=== PATIENT | male | born 1945 | race Caucasian/White ===

== ENCOUNTER 2022-06-09 13:54 | Inpatient (IN) ==
[2022-06-09] MEDS ORDERED: SODIUM CHLORIDE 0.9% 500 ML IV SCH (14:45)
--- NOTE | 2022-06-09 15:03 | XRay Report ---
XR chest 1V portable HISTORY: weakness COMPARISON: Chest 12/03/2020. FINDINGS: The lungs are clear. Cardiac silhouette is normal in size. No pleural effusions. No pneumot horax. IMPRESSION: No acute process. ACT 112: Negative or not required by law. Electronically signed by: Rubens Bond M.D. 06/09/2022 3:02 PM
[2022-06-09 15:05] LABS: Basophils # (auto) 0.02 K/uL (0-0.2); Basophils % (auto) 0.2 %; Eosinophils # (auto) 0.14 K/uL (0-0.50); Eosinophils % (auto) 1.3 %; Hematocrit (blood only) 38.3 % (40.1-51.0); Hemoglobin 13.4 g/dl (14.0-18.0); Immature Granulocytes # (auto) 0.16 K/uL (0.00-0.02); Immature Granulocytes % (auto) 1.4 %; Lymphocytes # (auto) 0.76 K/uL (1.2-3.4); Lymphocytes % (auto) 6.9 %; Mean Corpuscular Hemoglobin 30.4 pg (25.0-34.0); Mean Corpuscular Volume 86.8 fL (80.0-100.0); Monocytes # (auto) 0.69 K/uL (0.24-0.82); Monocytes % (auto) 6.2 %; Neutrophils # (auto) 9.32 K/uL (1.4-6.5); Platelet Count 310 K/uL (130-400); RDW Coefficient of Variation 13.2 % (11.5-14.5); RDW Standard Deviation 41.7 fL (36.4-46.3); Red Blood Count 4.41 M/uL (4.63-6.08); White Blood Count 11.09 K/ul (4.8-10.8)
[2022-06-09 15:18] LABS: Appearance Urine Clear (Clear); Bacteria Urine Automated Negative (Negative); Bilirubin Urine Negative (Negative); Blood Urine 1+ (Negative); Color Urine Yellow; Glucose Urine UA Negative (Negative); Ketones Urine Negative (Negative); Leukocyte Esterase Urine Negative (Negative); Nitrite Urine Negative (Negative); Protein Urine 1+ (Negative); Specific Gravity Urine 1.017 (1.000-1.030); Urobilinogen Urine Negative (Negative)
--- NOTE | 2022-06-09 15:20 | Emergency Department Note ---
Impression & Plan MADELIN (acute kidney injury) ED Provider Note NAME: RONALD HOOVER AGE: 77 SEX: M : 1945 ARRIVES VIA: Walk-In INFORMANT: Patient, ED PROVIDER(S): Jovanny Marquez DO CHIEF COMPLAINT: Weakness HPI: The patient is a 77-year-old male who presented to the emergency department for an evaluation of generalized weakness. The patient was given his COVID as well as his influenza shot this week. He states afterwards he became very weak and started noticing fevers. He started having fever over 100. He noticed no chest pain. He denies having any cough. He has no dysuria or frequency. The patient was seen by his family doctor and had outpatient laboratory studies drawn. This was done yesterday. He was called today and told to go to the emergency department for further evaluation as well as evaluation for renal failure. The patient denies having any recent trauma. He said no changes to his outpatient medications. He states has been compliant with his outpatient medications. He has noticed decreased urine output. ROS: See above HPI for pertinent positives & negatives. A total of 10 systems reviewed and were otherwise negative. PAST MEDICAL HISTORY: See Below PAST SURGICAL HISTORY: See Below FAMILY HISTORY: See Below SOCIAL HISTORY: See Below HOME MEDICATIONS: See Below ALLERGIES: See Below VITALS: See Below PHYSICAL EXAMINATION: GENERAL: Patient is awake alert in no acute distress patient is resting comfortably and showing no signs of anxiety EYES: The conjunctivae are clear. The pupils are round and reactive. EARS, NOSE, MOUTH AND THROAT: The nose is without any evidence of any deformity. Mucous membranes are dry. NECK: The neck is nontender and supple. RESPIRATORY: Normal respiratory effort is noted there is no evidence of wheezing rhonchi or rales CARDIOVASCULAR: Regular rate and rhythm noted there no murmurs rubs or gallops normal S1 normal S2. GASTROINTESTINAL: The abdomen was mildly distended. There is no tenderness guarding or rigidity. MUSCULOSKELETAL/EXTREMITIES: There is no evidence of gross deformity full range of motion is noted in the hips and shoulders. SKIN: Trace pedal edema was noted bilaterally. Skin was warm and dry. NEUROLOGIC: Patient is awake alert and oriented x3. MEDICAL DECISION MAKING: The patient is a 77-year-old male who presented to the emergency department for an evaluation of reported febrile illness. The patient was seen by his primary care physician and had laboratory studies drawn. He was told to go to the emergency department because of renal failure. The patient was found to have elevated creatinine in the emergency department. It was improved compared to his outpatient labs but still it was elevated compared to his baseline. He was treated with IV fluids. [facility] have agreed to evaluate the patient in the emergency department for further management and disposition. Triage Nursing notes reviewed. Prior medical records reviewed Vital Signs: reviewed and remarkable for elevated blood pressure. Differential diagnosis: Infection, dehydration, metabolic abnormality, hypo/hyperglycemia, electrolyte disturbance, anemia, hypoxia, cardiac sources, intracerebral event, toxicologic, neurologic, as well as other pathologies. ER treatment provided: See below Diagnostics interpreted by me: ECG: EKG was obtained in the emergency department. My interpretation is normal sinus rhythm at 70 bpm. Right bundle branch block pattern was noted. This was compared to a tracing from December 03, 2020. No changes were noted. Cardiac Monitoring: An order was placed for continuous cardiac monitoring. The monitor shows a rate of 71 bpm with sinus rhythm. Laboratory studies: As stated above and show below. Imaging studies: See below Consultation(s): I discussed this case with Donna [facility]. Past Med/Surg History Medical History (Updated 06/09/22 @ 18:51 by Jovanny Marquez DO) Acute kidney injury Gastroesophageal reflux disease HLD (hyperlipidemia) Hyperlipidemia Hypertension Maculopapular rash Major depressive disorder PTSD (post-traumatic stress disorder) Weakness Social History Smoking Status: Never smoker Feels Safe at Home: Yes Allergies Allergies Allergy/AdvReac Type Severity Reaction Status Date / Time No Known Allergies Allergy Verified 06/09/22 17:02 Home Meds Home Medications Medication Instructions Recorded Confirmed duloxetine 60 mg capsule,delayed 60 mg PO HS 12/03/20 06/09/22 release hydrochlorothiazide 12.5 mg tablet 12.5 mg PO DAILY 12/03/20 06/09/22 simvastatin 20 mg tablet 20 mg PO HS 12/03/20 06/09/22 Results & Data (ED) Vital Signs Vital Signs - 24 hr 06/09/22 14:18 06/09/22 14:56 06/09/22 15:24 Temperature 36.4 C L Temperature Source Temporal Artery Scan Pulse Rate 78 76 Pulse Rate [Apical] Respiratory Rate 20 20 Respiratory Effort / Characteristics Non-Labored Respiratory Depth Normal Blood Pressure 134/75 Blood Pressure [Right Arm] Blood Pressure Mean 94 Blood Pressure Mean [Right Arm] Pulse Oximetry 96 98 Oxygen Delivery Method Room Air Sepsis Recent Fever Within 48 Hours No Sepsis New/Unexplained Change in Mental Status N/A Sepsis Action Taken by Nursing No Action Required 06/09/22 15:30 06/09/22 15:40 06/09/22 15:50 Temperature Temperature Source Pulse Rate 72 68 68 Pulse Rate [Apical] Respiratory Rate 18 19 16 Respiratory Effort / Characteristics Respiratory Depth Blood Pressure Blood Pressure [Right Arm] Blood Pressure Mean Blood Pressure Mean [Right Arm] Pulse Oximetry Oxygen Delivery Method Sepsis Recent Fever Within 48 Hours Sepsis New/Unexplained Change in Mental Status Sepsis Action Taken by Nursing 06/09/22 16:00 06/09/22 16:00 06/09/22 16:10 Temperature Temperature Source Pulse Rate 71 69 Pulse Rate [Apical] 7 L Respiratory Rate 16 15 13 Respiratory Effort / Characteristics Respiratory Depth Blood Pressure Blood Pressure [Right Arm] 137/76 Blood Pressure Mean Blood Pressure Mean [Right Arm] 96 Pulse Oximetry 98 Oxygen Delivery Method Room Air Sepsis Recent Fever Within 48 Hours Sepsis New/Unexplained Change in Mental Status Sepsis Action Taken by Nursing 06/09/22 16:42 06/09/22 16:43 06/09/22 16:43 Temperature Temperature Source Pulse Rate 75 71 Pulse Rate [Apical] Respiratory Rate 16 16 Respiratory Effort / Characteristics Respiratory Depth Blood Pressure 144/81 H Blood Pressure [Right Arm] Blood Pressure Mean 102 Blood Pressure Mean [Right Arm] Pulse Oximetry Oxygen Delivery Method Sepsis Recent Fever Within 48 Hours Sepsis New/Unexplained Change in Mental Status Sepsis Action Taken by Snf Medications Current Medication List: was personally reviewed by me Laboratory Data Attestation: I reviewed the patient's lab results. Result diagrams: 06/09/22 14:46 06/09/22 14:46 Lab Results 06/09/22 06/09/22 06/09/22 Range/Units 14:46 14:46 14:46 WBC 11.09 H (4.8-10.8) K/ul RBC 4.41 L (4.63-6.08) M/uL Hgb 13.4 L (14.0-18.0) g/dl POC Hgb (14.0-18.0) g/dl Hct 38.3 L (40.1-51.0) % POC Hct (42-52) % MCV 86.8 (80.0-100.0) fL MCH 30.4 (25.0-34.0) pg MCHC 35.0 (32.0-36.0) g/dL RDW Std Deviation 41.7 (36.4-46.3) fL RDW Coeff of Cristiano 13.2 (11.5-14.5) % Plt Count 310 (130-400) K/uL MPV 10.0 (9.4-12.4) fL Immature Gran % (Auto) 1.4 % Neut % (Auto) 84.0 % Lymph % (Auto) 6.9 % [place] % (Auto) 6.2 % Eos % (Auto) 1.3 % Baso % (Auto) 0.2 % Neut # (Auto) 9.32 H (1.4-6.5) K/uL Lymph # (Auto) 0.76 L (1.2-3.4) K/uL [place] # (Auto) 0.69 (0.24-0.82) K/uL Eos # (Auto) 0.14 (0-0.50) K/uL Baso # (Auto) 0.02 (0-0.2) K/uL Immature Gran # (Auto) 0.16 H (0.00-0.02) K/uL PT 11.4 (9.0-12.0) Seconds INR 1.1 (0.9-1.1) APTT 32.8 H (21.0-31.0) Seconds PTT Ratio 1.2 POC Sodium (135-144) mmol/L Sodium 133 L (136-145) mmol/L POC Potassium (3.3-5.0) mmol/L Potassium 3.4 L (3.5-5.1) mmol/L POC Chloride (101-112) mmol/L Chloride 100 (98-107) mmol/L Carbon Dioxide 25 (21-32) mmol/L POC Total CO2 (24-31) mmol/L Anion Gap 8 (3-11) POC Anion Gap (16-25) mmol/L POC BUN (7-18) mg/dl BUN 46 H (6-23) mg/dl Creatinine 2.25 H (0.6-1.4) mg/dl POC Creatinine (0.6-1.3) mg/dl Est Cr Clr Drug Dosing 25.6 ml/min Est GFR ( Amer) 31.9 ml/min Est GFR (Non-Af Amer) 27.5 ml/min BUN/Creatinine Ratio 20.4 H (10-20) Glucose 106 H (70-99(Fasting)) mg/dl POC Glucose (other) (70-99) mg/dl Lactate (0.4-2.0) mmol/L Calcium 8.7 (8.5-10.1) mg/dl POC Ioniz Calcium Stephani (1.12-1.32) mmol/l Magnesium 2.2 (1.7-2.4) mg/dl Total Bilirubin 0.4 (0.2-1.0) mg/dl AST 88 H (13-39) U/L ALT 96 H (7-52) U/L Alkaline Phosphatase 138 H (34-104) U/L Total Creatine Kinase 39 (30-223) U/L Troponin I High Sens 12.3 (0-20) pg/ml Total Protein 6.6 (6.0-8.3) gm/dl Albumin 3.1 L (3.4-5.0) gm/dl Globulin 3.5 (2.5-4.0) gm/dl Albumin/Globulin Ratio 0.9 (0.9-2) TSH (0.300-4.500) uIu/ml Anaplasma Smear Babesia Smear SARS-CoV-2, RNA, NAAT (NEGATIVE) 06/09/22 06/09/22 06/09/22 Range/Units 14:46 14:46 14:46 WBC (4.8-10.8) K/ul RBC (4.63-6.08) M/uL Hgb (14.0-18.0) g/dl POC Hgb (14.0-18.0) g/dl Hct (40.1-51.0) % POC Hct (42-52) % MCV (80.0-100.0) fL MCH (25.0-34.0) pg MCHC (32.0-36.0) g/dL RDW Std Deviation (36.4-46.3) fL RDW Coeff of Cristiano (11.5-14.5) % Plt Count (130-400) K/uL MPV (9.4-12.4) fL Immature Gran % (Auto) % Neut % (Auto) % Lymph % (Auto) % [place] % (Auto) % Eos % (Auto) % Baso % (Auto) % Neut # (Auto) (1.4-6.5) K/uL Lymph # (Auto) (1.2-3.4) K/uL [place] # (Auto) (0.24-0.82) K/uL Eos # (Auto) (0-0.50) K/uL Baso # (Auto) (0-0.2) K/uL Immature Gran # (Auto) (0.00-0.02) K/uL PT (9.0-12.0) Seconds INR (0.9-1.1) APTT (21.0-31.0) Seconds PTT Ratio POC Sodium (135-144) mmol/L Sodium (136-145) mmol/L POC Potassium (3.3-5.0) mmol/L Potassium (3.5-5.1) mmol/L POC Chloride (101-112) mmol/L Chloride (98-107) mmol/L Carbon Dioxide (21-32) mmol/L POC Total CO2 (24-31) mmol/L Anion Gap (3-11) POC Anion Gap (16-25) mmol/L POC BUN (7-18) mg/dl BUN (6-23) mg/dl Creatinine (0.6-1.4) mg/dl POC Creatinine (0.6-1.3) mg/dl Est Cr Clr Drug Dosing ml/min Est GFR ( Amer) ml/min Est GFR (Non-Af Amer) ml/min BUN/Creatinine Ratio (10-20) Glucose (70-99(Fasting)) mg/dl POC Glucose (other) (70-99) mg/dl Lactate 0.7 (0.4-2.0) mmol/L Calcium (8.5-10.1) mg/dl POC Ioniz Calcium Stephani (1.12-1.32) mmol/l Magnesium (1.7-2.4) mg/dl Total Bilirubin (0.2-1.0) mg/dl AST (13-39) U/L ALT (7-52) U/L Alkaline Phosphatase (34-104) U/L Total Creatine Kinase (30-223) U/L Troponin I High Sens (0-20) pg/ml Total Protein (6.0-8.3) gm/dl Albumin (3.4-5.0) gm/dl Globulin (2.5-4.0) gm/dl Albumin/Globulin Ratio (0.9-2) TSH 2.485 (0.300-4.500) uIu/ml Anaplasma Smear See Comment Babesia Smear See Comment SARS-CoV-2, RNA, NAAT (NEGATIVE) 06/09/22 06/09/22 Range/Units 14:55 15:22 WBC (4.8-10.8) K/ul RBC (4.63-6.08) M/uL Hgb (14.0-18.0) g/dl POC Hgb 13.6 L (14.0-18.0) g/dl Hct (40.1-51.0) % POC Hct 40 L (42-52) % MCV (80.0-100.0) fL MCH (25.0-34.0) pg MCHC (32.0-36.0) g/dL RDW Std Deviation (36.4-46.3) fL RDW Coeff of Cristiano (11.5-14.5) % Plt Count (130-400) K/uL MPV (9.4-12.4) fL Immature Gran % (Auto) % Neut % (Auto) % Lymph % (Auto) % [place] % (Auto) % Eos % (Auto) % Baso % (Auto) % Neut # (Auto) (1.4-6.5) K/uL Lymph # (Auto) (1.2-3.4) K/uL [place] # (Auto) (0.24-0.82) K/uL Eos # (Auto) (0-0.50) K/uL Baso # (Auto) (0-0.2) K/uL Immature Gran # (Auto) (0.00-0.02) K/uL PT (9.0-12.0) Seconds INR (0.9-1.1) APTT (21.0-31.0) Seconds PTT Ratio POC Sodium 134 L (135-144) mmol/L Sodium (136-145) mmol/L POC Potassium 3.3 (3.3-5.0) mmol/L Potassium (3.5-5.1) mmol/L POC Chloride 99 L (101-112) mmol/L Chloride (98-107) mmol/L Carbon Dioxide (21-32) mmol/L POC Total CO2 26 (24-31) mmol/L Anion Gap (3-11) POC Anion Gap 14.0 L (16-25) mmol/L POC BUN 46 H (7-18) mg/dl BUN (6-23) mg/dl Creatinine (0.6-1.4) mg/dl POC Creatinine 2.5 H (0.6-1.3) mg/dl Est Cr Clr Drug Dosing ml/min Est GFR ( Amer) ml/min Est GFR (Non-Af Amer) ml/min BUN/Creatinine Ratio (10-20) Glucose (70-99(Fasting)) mg/dl POC Glucose (other) 114 H (70-99) mg/dl Lactate (0.4-2.0) mmol/L Calcium (8.5-10.1) mg/dl POC Ioniz Calcium Stephani 1.13 (1.12-1.32) mmol/l Magnesium (1.7-2.4) mg/dl Total Bilirubin (0.2-1.0) mg/dl AST (13-39) U/L ALT (7-52) U/L Alkaline Phosphatase (34-104) U/L Total Creatine Kinase (30-223) U/L Troponin I High Sens (0-20) pg/ml Total Protein (6.0-8.3) gm/dl Albumin (3.4-5.0) gm/dl Globulin (2.5-4.0) gm/dl Albumin/Globulin Ratio (0.9-2) TSH (0.300-4.500) uIu/ml Anaplasma Smear Babesia Smear SARS-CoV-2, RNA, NAAT NEGATIVE (NEGATIVE) Administered Medications Discontinued Medications Sodium Chloride (Nss) 500 mls @ 999 mls/hr IV .Q31M KENNEDY Stop: 06/09/22 15:15 Last Infusion: 06/09/22 16:45 Dose: 0 mls/hr Documented By: Admin: 06/09/22 15:20 Dose: 999 mls/hr Documented By: MARGARET Imaging Data Radiologist's Impression: Chest X-Ray 06/09/22 14:40 XR chest 1V portable HISTORY: weakness COMPARISON: Chest 12/03/2020. FINDINGS: The lungs are clear. Cardiac silhouette is normal in size. No pleural effusions. No pneumothorax. IMPRESSION: No acute process. ACT 112: Negative or not required by law. Electronically signed by: Rubens Bond M.D. 06/09/2022 3:02 PM Discharge Plan Visit Data Chief Complaint: Illness Stated Complaint: RENAL FAILURE ED Provider: Jovanny Marquez Discharge Problem: MADELIN (acute kidney injury) Patient Disposition: Admitted As Inpatient Discharge Instructions Interventions: ED Discharge Assessment Last Done: 06/09/22 18:43
[2022-06-09 15:21] LABS: INR 1.1 (0.9-1.1); Partial Thromboplastin Ratio 1.2; Partial Thromboplastin Time 32.8 Seconds (21.0-31.0); Prothrombin Time 11.4 Seconds (9.0-12.0)
[2022-06-09 15:39] LABS: iSTAT Creatinine 2.5 mg/dl (0.6-1.3); iSTAT Hemoglobin 13.6 g/dl (14.0-18.0); iSTAT Ionized Calcium 1.13 mmol/l (1.12-1.32); iSTAT Potassium 3.3 mmol/L (3.3-5.0)
[2022-06-09 15:40] LABS: Troponin I High Sensitivity 12.3 pg/ml (0-20)
[2022-06-09 15:49] LABS: Albumin Globulin Ratio 0.9 (0.9-2); Albumin Level 3.1 gm/dl (3.4-5.0); BUN Creatinine Ratio 20.4 (10-20); Bilirubin,Total 0.4 mg/dl (0.2-1.0); Calcium 8.7 mg/dl (8.5-10.1); Creatinine Clr Calc Pharmacy 25.6 ml/min; Est GFR (African American) 31.9 ml/min; Est GFR (Non-African American) 27.5 ml/min; Globulin 3.5 gm/dl (2.5-4.0); Magnesium 2.2 mg/dl (1.7-2.4); Potassium 3.4 mmol/L (3.5-5.1); Total Protein 6.6 gm/dl (6.0-8.3)
--- NOTE | 2022-06-09 16:43 | History & Physical Report ---
Date of Service June 09, 2022 Assessment & Plan (1) Acute kidney injury: (2) Weakness: (3) Maculopapular rash: (4) HLD (hyperlipidemia): (5) Hypertension: (6) Major depressive disorder: Plan Mr. Kaiser Arroyo is a 77-year-old M generalized weakness and by recommendation of his PCP Dr. Villegas for an elevated creatinine of 3.0 that was obtained yesterday 06/08. The patient reports that he received his COVID booster and flu shot on June 01 and felt ill for 4 days thereafter including weakness, decreased p.o. appetite, fever and chills, and dribbling with urination. The patient at baseline is relatively well and independent. He walks 3 miles per day. Chest x-ray negative. Slight leukocytosis WBC 11.09. K+ 3.4 and his creatinine has decreased from 3.0-2.25 today. His baseline creatinine in [facility] is 1.0 that was noted 1 year ago in 2020. (-) CVA tenderness; (+) abdominal distention. (+) spotty, generalized nonpruritic maculopapular rash that he reports noting over the past week or so. A bladder scan was obtained with 165 mL. Renal US, Lyme serology, additional electrolyte, procalcitonin, urine culture. Acute Kidney Injury: Elevated ALT, AST Weakness: Maculopapular Rash: Recently had COVID-19 booster and Influenza vaccine; became weak febrile at home; afebrile here Check Lyme serology Check urine culture and UA blood cultx pending Check procal with slight leukocytosis Obtain orthostatic BPs once K+ 3.4; replace with PO gently keeping in mind his kidney function; check BMP in AM Check Mg+ and Phos+ Obtain renal ultrasound Bladder scan done. 165mL Non-pruritic Maculopapular Rash with fever could be related to MADELIN. Has not started any new medications; monitor Consult nephrology given MADELIN No RUQ pain, AST, ALT elev. Repeat CMP AM, trend liver enzymes consider RUQ US if no improvement, and hep panel HLD: Stable; continue simvastatin Lipid panel is from 2019: TG 75, HDL 56, LDL 164 Recheck in AM HTN: Stable in ED; Continue HCTZ Major Depressive Disorder: Continue Duloxetine Disposition: PCP: Dr. Villegas Code: Full code VTE Prophylaxis: SCDs I personally was able to review all current laboratory work and diagnostic images obtained in the ED. Additionally, I was able to review the patients past medication reconciliation and history with direct visualization in the patients chart. This patient was discussed with Dr. Soliz. History of Present Illness Chief Complaint: weakness Primary Care Provider: Ivanna Villegas MD Mr. Saab is a 77-year-old male who presents to the hospital with overall generalized weakness and by recommendation of his PCP Dr. Villegas for an elevated creatinine of 3.0 that was obtained yesterday 06/08. The patient reports that he received his COVID booster and flu shot on June 01 and felt ill for 4 days thereafter including weakness, decreased p.o. appetite, fever and chills, and dribbling with urination. The patient at baseline is relatively well and independent. He walks 3 miles per day. Additional PMH includes hypertension, hyperlipidemia, and depression. Chest x-ray was negative. Slight leukocytosis WBC 11.09. He is slightly hypokalemic with a potassium of 3.4 and his creatinine has decreased from 3.0-2.25 today. His baseline creatinine in [facility] is 1.0 that was noted 1 year ago in 2020. The patient denies headache, dizziness, visual changes, chest pain, palpitations, nausea, vomiting, falls, recent trauma. He does report that his bowels have been affected by his decreased appetite and that they are very pale. On exam he did not have any CVA tenderness however there was some abdominal distention with tympanic sounds during percussion. Patient noted to have a spotty, generalized nonpruritic rash that he reports noting over the past week or so. A bladder scan was obtained with 165 mL. We will obtain a KUB, Lyme serology, additional electrolyte, procalcitonin, urine culture, and will admit to [facility] telemetry for further evaluation and management. Please see A&P for further information. Allergies Allergy/AdvReac Type Severity Reaction Status Date / Time No Known Allergies Allergy Verified 06/09/22 17:02 Home Medications Medication Instructions Recorded Confirmed Type duloxetine 60 mg capsule,delayed 60 mg PO HS 12/03/20 06/09/22 History release hydrochlorothiazide 12.5 mg tablet 12.5 mg PO DAILY 12/03/20 06/09/22 History simvastatin 20 mg tablet 20 mg PO HS 12/03/20 06/09/22 History Past Med/Surg History Medical History (Updated 06/09/22 @ 18:51 by Jovanny Marquez DO) Acute kidney injury Gastroesophageal reflux disease HLD (hyperlipidemia) Hyperlipidemia Hypertension Maculopapular rash Major depressive disorder PTSD (post-traumatic stress disorder) Weakness Social History Smoking Status: Former smoker Hx Alcohol Use: No Hx Substance Use: No Preferred Language: Portuguese Communication Ability: Effective [employer] Required: No Beliefs That Will Affect Care: None Current Living Situation: Spouse Other Information That Helps Us Care for You: No Feels Safe at Home: Yes Safety Concerns: Feels Safe At This Time Assistive Devices: Glasses and Hearing Aid - Bilateral Review of Systems Review of Systems: Neuro: (-) Falls, trauma, slurred speech HEENT: (-) GARCÍA, dizziness, dysphagia, visual or auditory changes CV: (-) CP, palpitations, swelling Resp: (-) SOB GI: (-) appetite changes, N/V/D, bowel changes : (+) dribbling with urination Skin: (+) rashes Psych: (-) anxiety, depression Physical Exam Physical Exam: Neuro: AAOx4, PERRLA, no aphagia, memory changes, CNII-XII grossly intact HEENT: head normocephalic, moist mucus membranes CV: S1/S2, (-) M/G/R, (-) edema, cap refill < 3 seconds Resp: Lungs CTA in all puga. On RA GI: Abdomen S/NT/ slight distention, Ax4 bowel sounds, (-) CVA tenderness Musculoskeletal: 5/5 B/L UE strength, 5/5 B/L LE strength. No gait disturbance Skin: (+) generalized nonpruritic maculopapular rash Psych: euthymic mood Results & Data Results & Data ([facility]) Vital Signs (Past 12 Hours) Vital Signs Temp Pulse Pulse Resp BP BP Pulse Ox 06/09/22 16:00 7 L 16 137/76 98 06/09/22 15:50 68 16 06/09/22 15:40 68 19 06/09/22 15:30 72 18 06/09/22 15:24 76 20 06/09/22 14:56 98 06/09/22 14:18 36.4 C L 78 20 134/75 96 O2 Del Method 06/09/22 16:00 Room Air 06/09/22 15:50 06/09/22 15:40 06/09/22 15:30 06/09/22 15:24 06/09/22 14:56 06/09/22 14:18 Room Air Laboratory Results Short CBC 06/09/22 Range/Units 14:46 WBC 11.09 H (4.8-10.8) K/ul Hgb 13.4 L (14.0-18.0) g/dl Hct 38.3 L (40.1-51.0) % Plt Count 310 (130-400) K/uL BMP 06/09/22 14:46 Sodium 133 L Potassium 3.4 L Chloride 100 Carbon Dioxide 25 BUN 46 H Creatinine 2.25 H Glucose 106 H Calcium 8.7 Cardiac Enzymes 06/09/22 Range/Units 14:46 Total Creatine Kinase 39 (30-223) U/L Liver Function 06/09/22 Range/Units 14:46 Total Bilirubin 0.4 (0.2-1.0) mg/dl AST 88 H (13-39) U/L ALT 96 H (7-52) U/L Alkaline Phosphatase 138 H (34-104) U/L Albumin 3.1 L (3.4-5.0) gm/dl Urine 06/09/22 Range/Units Unknown Urine Color Yellow Urine Appearance Clear (Clear) Urine pH 5.0 (4.5-7.5) Ur Specific [place] 1.017 (1.000-1.030) Urine Protein 1+ H (Negative) Urine Glucose (UA) Negative (Negative) Diagnostic Findings Chest X-Ray 06/09/22 14:40 XR chest 1V portable HISTORY: weakness COMPARISON: Chest 12/03/2020. FINDINGS: The lungs are clear. Cardiac silhouette is normal in size. No pleural effusions. No pneumothorax. IMPRESSION: No acute process. ACT 112: Negative or not required by law. Electronically signed by: Rubens Bond M.D. 06/09/2022 3:02 PM Code Status & VTE Plan Code Status full code VTE Prophylaxis Plan VTE Prophylaxis will be ordered: Yes Supervising Physician Co-Signing Physician Notes Pt seen and examined by me, care coordinated w/ E. PEYMAN Grace, pls refer to her note above for further detail. Pt is a 77 yo M who presents with overall generalized weakness and elevated creatinine of 3.0 that was obtained yesterday 06/08. The patient reports that he received his COVID booster and flu shot on June 01 and felt ill for 4 days thereafter including weakness, decreased p.o. appetite, fever and chills. His creatinine improved from 3.0 ->2.25 today. His baseline creatinine in [facility] was 1.0 in 2020. Patient is currently lying in bed, in no acute distress. He is alert oriented answering questions appropriately. Lung sounds are clear. Heart sounds regular. Abdomen soft nontender nondistended. There is no lower extremity ed manda. Mild macular rash noted on chest. Patient's and daughter present at the bedside. Chest x-ray and KUB obtained, unremarkable. WBC only mildly elevated, however procalcitonin elevated. CRP also elevated, ESR pending. Bladder scan without significant retention. Will obtain renal ultrasound, continue IV fluids and discuss further with nephrology given MADELIN. Lyme titers are ordered. AST ALT also elevated, will trend, hepatitis panel ordered. Blood cultures are pending. In the meantime we will cover empirically with ceftriaxone. Continue to closely monitor. MD Martínez
--- NOTE | 2022-06-09 18:25 | XRay Report ---
XR KUB/Abdomen 1 view CLINICAL HISTORY: elevated creatinine and abdominal distension TECHNIQUE: 1 view of the abdomen was obtained. Comparison: None available at the time of this dictation. FINDINGS: Lung bases are unremarkable. Degenerative changes are seen in the visualized skeleton. The bowel gas pattern is nonobstructive. Small stool burden is seen. IMPRESSION: Nonobstructive bowel gas pattern. ACT 112: Negative or not required by law. Electronically signed by: Hernesto Jackson M.D. 06/09/2022 6:24 PM
[2022-06-09 19:10] LABS: C Reactive Protein 16.95 mg/dl (0-0.5)
[2022-06-09 19:18] LABS: Procalcitonin 1.74 ng/ml (0-0.5)
[2022-06-09 19:24] LABS: Lyme Ab IgG w/WB Rflx Negative (Negative); Lyme Ab IgM w/WB Rflx Negative (Negative)
[2022-06-09] MEDS ORDERED: POTASSIUM CHLORIDE 10 MEQ TABCR PO STA (19:58)
[2022-06-09] MEDS ORDERED: cefTRIAXone SODIUM 2,000 MG in DEXTROSE 5% 50 ML IV SCH (20:30)
--- NOTE | 2022-06-09 20:52 | Ultrasound Report ---
US renal/blad retro comp CLINICAL HISTORY: elevated creatinine and abd distention TECHNIQUE: Multiple sonographic real-time images of the kidneys and bladder were obtained. COMPARISON: None available at the time of this dictation. FINDINGS: The right kidney measures 11.7 cm in length, and the left kidney measures 12.8 cm in length. The right kidney is normal in size, contour, cortical thickness, and echogenicity. No hydronephrosis is identified. No renal lesion is identified. No perinephric fluid collection is seen. The left kidney is normal in size, contour, cortical thickness and echogenicity. No hydronephrosis i s identified. A lower pole cyst is seen. No perinephric fluid collection is seen. A mass is seen ad jacent to the spleen and left kidney upper pole, possibly a splenule. The bladder is partially distended. No large intraluminal mass is seen. Prostatomegaly is seen. IMPRESSION: No hydronephrosis is seen. Additional incidental findings as above. ACT 112: Negative or not required by law. Electronically signed by: Hernesto Jackson M.D. 06/09/2022 8:51 PM
[2022-06-09] MEDS: SODIUM CHLORIDE 0.9% 500 ML IV SCH (20:58)
[2022-06-10] MEDS: SODIUM CHLORIDE 0.9% 500 ML IV SCH (03:35)
--- NOTE | 2022-06-10 06:25 | Electrocardiogram Report ---
Test Reason : Blood Pressure : / mmHG Vent. Rate : 070 BPM Atrial Rate : 070 BPM P-R Int : 168 ms QRS Dur : 142 ms QT Int : 406 ms P-R-T Axes : 041 -27 -03 degrees QTc Int : 438 ms Poor data quality, interpretation may be adversely affected Normal sinus rhythm Right bundle branch block Septal infarct (cited on or before 03-DEC-2020) Abnormal ECG When compared with ECG of 03-DEC-2020 12:29, Questionable change in initial forces of Septal leads T wave inversion more evident in Anterior leads Confirmed by Cristino Garrison ([id number]) on 06/10/2022 6:25:33 AM Referred By: Ivanna Villegas Confirmed By:Cristino Garrison
[2022-06-10 07:41] LABS: Hematocrit (blood only) 37.8 % (40.1-51.0); Mean Corpuscular Hemoglobin 30.2 pg (25.0-34.0); Mean Corpuscular Hgb Conc 34.4 g/dL (32.0-36.0); Mean Corpuscular Volume 87.7 fL (80.0-100.0); Mean Platelet Volume 9.8 fL (9.4-12.4); Platelet Count 384 K/uL (130-400); RDW Coefficient of Variation 13.2 % (11.5-14.5); RDW Standard Deviation 42.7 fL (36.4-46.3); Red Blood Count 4.31 M/uL (4.63-6.08); White Blood Count 13.29 K/ul (4.8-10.8)
--- NOTE | 2022-06-10 07:48 | XRay Report ---
XR chest 1V portable HISTORY: 77 years-old Male weakness acute weakness COMPARISON: Chest radiograph 06/09/2022 TECHNIQUE: AP view of the chest FINDINGS: The cardiac silhouette is mildly enlarged. No pneumothorax, pleural effusion or overt pulmonary edema . Subsegmental bibasilar opacities. IMPRESSION: Mild subsegmental bibasilar opacities suggest atelectasis. ACT 112: Negative or not required by law. The above report was generated using voice recognition software. It may contain grammatical, syntax o r spelling errors. Electronically signed by: Fly Zamora M.D. 06/10/2022 7:47 AM
[2022-06-10 08:09] LABS: Albumin Globulin Ratio 0.9 (0.9-2); Albumin Level 3.2 gm/dl (3.4-5.0); BUN Creatinine Ratio 19.4 (10-20); Bilirubin,Total 0.5 mg/dl (0.2-1.0); Calcium 8.6 mg/dl (8.5-10.1); Chol HDL Ratio 6.9 (0-5); Est GFR (African American) 41.7 ml/min; Globulin 3.4 gm/dl (2.5-4.0); Magnesium 1.8 mg/dl (1.7-2.4); Potassium 3.4 mmol/L (3.5-5.1); Total Protein 6.6 gm/dl (6.0-8.3)
[2022-06-10] MEDS ORDERED: POLYETHYLENE (MIRALAX) 17 GM PACK PO PRN (08:49)
[2022-06-10] MEDS ORDERED: hydroCHLOROthiazide 25 MG TAB PO SCH (09:00)
[2022-06-10] MEDS ORDERED: SIMVASTATIN 20 MG TAB PO SCH (09:00)
[2022-06-10] MEDS ORDERED: DULoxetine HCL 60 MG CAP PO SCH (09:00)
[2022-06-10] MEDS ORDERED: POTASSIUM CHLORIDE CRTAB 20 MEQ TABCR PO STA (11:04)
--- NOTE | 2022-06-10 14:23 | Consultation Report ---
NEPHROLOGY CONSULTATION NOTE DATE OF SERVICE: 06/10/2022. REASON FOR CONSULTATION: Acute renal failure and hyponatremia. HISTORY OF PRESENT ILLNESS: The patient is a 77-year-old male with baseline normal kidney function with a creatinine of 1.0 as of November 2020. He had routine blood work done at PCP's office 2 days ago and was found to have a creatinine of 3.0, after which he was told to go to the hospital. His sodium was also 132 on that blood work. He does not have history of hyponatremia in the past, but he has been on hydrochlorothiazide for hypertension for a while. He had COVID booster and flu shot on 06/01/2022, and since then he has been feeling ill for many days. Significant drop in appetite as well as increased weakness, occasional fever and chills. At baseline, the patient is very healthy, independent and he walks 3 miles per day. Admission workup in the Emergency Department yesterday showed a creatinine of 2.25 and this morning is even better at 1.80. He has been getting IV fluid. Sodium is slightly low at 133 and potassium 3.4. He has slight leukocytosis and he also spiked a temperature overnight. Renal ultrasound was done yesterday and was unremarkable. PAST MEDICAL AND SURGICAL HISTORY: Includes hypertension, controlled with single agent, history of GERD, hyperlipidemia, history of maculopapular rash, history of depression, history of posttraumatic stress disorder. SOCIAL HISTORY: Former smoker. No alcohol. , lives with his spouse. He is very active and walks almost 3 miles per day. REVIEW OF SYSTEMS: Weakness, intermittent fever, chills, rashes present, some urinary complaints, but denies nausea, vomiting, shortness of breath, orthopnea, PND or lower extremity edema. His appetite was significantly less than usual. ALLERGIES: None. MEDICATIONS: Home medication was reviewed and includes Cymbalta, hydrochlorothiazide 12.5 daily, and simvastatin 20 daily. PHYSICAL EXAMINATION: GENERAL: Elderly white male who appears quite healthy and strongly built. He is awake, alert, oriented x3. HEENT: Mucous membranes are moist. NECK: Supple. No jugular venous distention. CHEST: Bilaterally clear to auscultation. CARDIOVASCULAR: S1 and S2, regular. ABDOMEN: Soft, nontender. EXTREMITIES: Show no edema. VITAL SIGNS: Show blood pressure 134/69, pulse rate 86, temperature 37 degrees Celsius, 94% on room air. LABORATORY TEST: At baseline, he has a completely normal creatinine of less than 1. Two days ago, creatinine was 3.0 with a sodium of 132, since then it has improved significantly and this morning blood work shows creatinine of 1.8 and sodium is 133, potassium is 3.4. ASSESSMENT AND PLAN: I have been consulted for acute renal failure. Acute renal failure: This is prerenal in etiology secondary to decreased oral intake and decreased hydration, concomitant use of hydrochlorothiazide. It appears he does have leukocytosis with rash as well as intermittent fever and chills, so there is a possibility of some kind of infection happening at this time. However, from renal standpoint, I do not see any problem. I expect his kidney function to be back to pretty much normal by tomorrow. He will be kept further for further evaluation of fever, chills, leukocytosis. Continue IV hydration if the patient is not drinking enough. Thank you very much for the consult. Job ID: [id number] [facility]OSPITALJulio
--- NOTE | 2022-06-10 15:59 | Discharge Summary ---
Discharge Summary Date of Service June 10, 2022 Admission HPI Per Admitting Provider Mr. Saab is a 77-year-old male who presents to the hospital with overall generalized weakness and by recommendation of his PCP Dr. Villegas for an elevated creatinine of 3.0 that was obtained yesterday 06/08. The patient reports that he received his COVID booster and flu shot on June 01 and felt ill for 4 days thereafter including weakness, decreased p.o. appetite, fever and chills, and dribbling with urination. The patient at baseline is relatively well and independent. He walks 3 miles per day. Additional PMH includes hypertension, hyperlipidemia, and depression. Chest x-ray was negative. Slight leukocytosis WBC 11.09. He is slightly hypokalemic with a potassium of 3.4 and his creatinine has decreased from 3.0-2.25 today. His baseline creatinine in [facility] is 1.0 that was noted 1 year ago in 2020. The patient denies headache, dizziness, visual changes, chest pain, palpitations, nausea, vomiting, falls, recent trauma. He does report that his bowels have been affected by his decreased appetite and that they are very pale. On exam he did not have any CVA tenderness however there was some abdominal distention with tympanic sounds du ring percussion. Patient noted to have a spotty, generalized nonpruritic rash that he reports noting over the past week or so. A bladder scan was obtained with 165 mL. We will obtain a KUB, Lyme serology, additional electrolyte, procalcitonin, urine culture, and will admit to [facility] telemetry for further evaluation and management. Please see A&P for further information. Principal Dx & Hospital Course #1 = Principal Diagnosis (1) Acute kidney injury: (2) Weakness: (3) Maculopapular rash: (4) HLD (hyperlipidemia): (5) Hypertension: (6) Major depressive disorder: Plan Mr. Kaiser Arroyo is a 77-year-old M generalized weakness and by recommendation of his PCP Dr. Villegas for an elevated creatinine of 3.0 that was obtained yesterday 06/08. The patient reports that he received his COVID booster and flu shot on June 01 and felt ill for 4 days thereafter including weakness, de creased p.o. appetite, fever and chills, and dribbling with urination. The patient at baseline is relatively well and independent. He walks 3 miles per day. Chest x-ray negative. Slight leukocytosis WBC 11.09. K+ 3.4 and his creatinine has decreased from 3.0-2.25 today. His baseline creatinine in [facility] is 1.0 that was noted 1 year ago in 2020. (-) CVA tenderness; (+) abdominal distention. (+) spotty, generalized nonpruritic maculopapular rash that he reports noting over the past week or so. A bladder scan was obtained with 165 mL. Renal US, Lyme serology, additional electrolyte, procalcitonin, urine culture. Acute Kidney Injury: Elevated ALT, AST Weakness: Maculopapular Rash: Recently had COVID-19 booster and Influenza vaccine; became weak febrile at home; afebrile here Check Lyme serology Check urine culture and UA blood cultx pending Check procal with slight leukocytosis Obtain orthostatic BPs once K+ 3.4; replace with PO gently keeping in mind his kidney function; check BMP in AM Check Mg+ and Phos+ Obtain renal ultrasound Bladder scan done. 165mL Non-pruritic Maculopapular Rash with fever could be related to MADELIN. Has not started any new medications; monitor Consult nephrology given MADELIN No RUQ pain, AST, ALT elev. Repeat CMP AM, trend liver enzymes consider RUQ US if no improvement, and hep panel HLD: Stable; continue simvastatin Lipid panel is from 2019: TG 75, HDL 56, LDL 164 Recheck in AM HTN: Stable in ED; Continue HCTZ Major Depressive Disorder: Continue Duloxetine Disposition: PCP: Dr. Villegas Code: Full code VTE Prophylaxis: SCDs I personally was able to review all current laboratory work and diagnostic images obtained in the ED. Additionally, I was able to review the patients past medication reconciliation and history with direct visualization in the patients chart. This patient was discussed with Dr. Soliz. Updated Medication List Medication Instructions Recorded Confirmed Type duloxetine 60 mg capsule,delayed 60 mg PO HS 12/03/20 06/09/22 History release hydrochlorothiazide 12.5 mg tablet 12.5 mg PO DAILY 12/03/20 06/09/22 History simvastatin 20 mg tablet 20 mg PO HS 12/03/20 06/09/22 History Hospital Stay Data Consultations 06/09/22 16:51 ED Decision to Admit Stat 06/10/22 08:00 Consult Nephrology Routine Diagnostic Imagining Performed 06/09/22 18:03 US Renal Bladder [US renal/blad retro comp] Routine Pending Results Patient Have Any Pending Studies at Discharge: Yes Discharge Instructions Given to Patient (Per Discharging Provider) Please hold off taking hydrochlorothiazide until you are seen by your primary care physician (PCP) next week. At this time, you will likely need nonfasting bloodwork for monitoring. Please continue to stay hydrated and use Tylenol for any mild fevers. Please seek immediate medical attention if your clinical symptoms get worse or you are concerned. Please avoid Ibuprofen or other non-steroidal anti-inflammatory drugs (NSAIDs) as these may adversely affect your kidneys. There are blood cultures still pending at discharge and also labs that look into the possibility of a tick borne illness to explain your symptoms. These results should be discussed when you follow-up next week with your primary care provider. You were also found to have mildly elevated liver enzymes on your bloodwork. There is a hepatitis panel pending at discharge, and it is lyon to repeat these blood tests when you follow-up next week in the clinic. It was a pleasure taking care of you! Please call if you have any questions or problems. You can reach a [facility] hospitalist on duty at [facility] 24 hours a day by calling [phone]. Take care of yourself. Ilda Rajan, [facility]ist
[2022-06-11 14:11] LABS: HBSAG NON-REACTIVE (NON-REACTIVE); Hepatitis A Antibody IgM NON-REACTIVE (NON-REACTIVE); Hepatitis B Core Antibody IgM NON-REACTIVE (NON-REACTIVE)
[2022-06-13 00:21] LABS: Babesia microti DNA Not Detected (Not Detected)
== END 2022-06-10 16:40 | disposition home or self-care (01) | DRG 683 ==
LOC: ED 13:54 → 2N 16:51 → SUATTDRO 16:51 → 2N 18:43
DX: E87.1 Hypo-osmolality and hyponatremia; Z87.891 Personal history of nicotine dependence; N17.9 Acute kidney failure, unspecified; E78.5 Hyperlipidemia, unspecified; R50.9 Fever, unspecified; R21 Rash and other nonspecific skin eruption; R53.1 Weakness; F32.9 Major depressive disorder, single episode, unspecified; I10 Essential (primary) hypertension